=== PATIENT | female | born 2000 | race Caucasian/White ===

== ENCOUNTER 2024-01-02 16:21 | Outpatient (CLI) | payer BC, MEDICAID, SELFPAY ==
[2024-01-02 17:25] LABS: HCG Quant, Pregnancy 86 mIU/mL (1-3)
== END 2024-01-02 16:22 | disposition home or self-care (01) ==
LOC: LBO 16:23
PROVIDERS: Visit Provider Advanced Practice Midwife
DX: O20.9 Hemorrhage in early pregnancy, unspecified (principal); N92.6 Irregular menstruation, unspecified
CPT/HCPCS: 36415; 84702

== ENCOUNTER 2024-04-04 16:45 | Outpatient (CLI) | payer BC, SELFPAY ==
[2024-04-04 17:08] LABS: HCG Quant, Pregnancy 44 mIU/mL (1-3)
== END 2024-04-04 16:46 | disposition home or self-care (01) ==
LOC: LBO 16:47
PROVIDERS: Obstetrics & Gynecology; PCP Nurse Practitioner Family; Referring Provider Obstetrics & Gynecology Gynecology; Visit Provider Obstetrics & Gynecology Gynecology
DX: O26.851 Spotting complicating pregnancy, first trimester (principal); Z3A.01 Less than 8 weeks gestation of pregnancy
CPT/HCPCS: 36415; 84702

== ENCOUNTER 2024-05-22 04:44 | Outpatient (CLI) | payer BC, MEDICAID, SELFPAY ==
[2024-05-22 11:42] LABS: Abs Immature Grans 0.04 10^3/uL (0.0-0.06); Absolute Eosinophil Count 0.08 10^3/uL (0.0-0.7); Absolute Lymphocyte Count 1.99 10^3/uL (1.2-3.4); Absolute Monocyte Count 0.77 10^3/uL (0.1-0.8); Basophils % 0.3 %; Eosinophils % 0.7 %; HCT 37.7 % (36.0-46.0); Immature Grans % 0.3 %; Lymphocytes % 17.3 %; MCH 31.2 pg (27.0-33.0); MCHC 34.5 % (32.0-36.0); MCV 90 fL (80-95); MPV 10.1 fL (8.0-11.0); Monocytes % 6.7 %; Neutrophils % 74.7 %; Platelet Count 251 10^3/uL (130-400); RBC 4.17 10^6/uL (3.93-5.22); RDW 11.7 % (11.7-14.6); RDW-SD 38.4 fL; WBC 11.52 10^3/uL (4.4-10.8)
[2024-05-22 11:46] LABS: Absolute Basophil Count 0.03 10^3/uL (0.0-0.2); Absolute Neutrophil Count 8.61 10^3/uL (1.2-6.7)
[2024-05-22 12:13] LABS: TSH (W/Ref FT4) 0.01 uIU/mL (0.36-3.74)
[2024-05-22 12:31] LABS: Panorama Kit Sent via Fed Ex
[2024-05-22 12:31] LABS: FREE T4 1.52 ng/dL (0.76-1.46)
[2024-05-22 19:04] LABS: Hepatitis B Surface Ag Negative (Negative)
[2024-05-22 19:44] LABS: HIV-1/2 Ag & Ab Screen Negative (Negative)
[2024-05-22 19:52] LABS: Hepatitis C Ab w Rflx HCV PCR Negative (Negative)
[2024-05-23 09:54] LABS: Rubella IgG Ab (UVM) Positive (See Note); Varicella IgG Antibody Positive (See Note)
[2024-05-24 14:18] LABS: Syphilis IgG w/Reflex Nonreactive (Nonreactive)
== END 2024-05-22 04:45 | disposition home or self-care (01) ==
LOC: LBO 04:44
PROVIDERS: Advanced Practice Midwife; PCP Nurse Practitioner Family; Visit Provider Advanced Practice Midwife
DX: Z34.91 Encounter for supervision of normal pregnancy, unspecified, first trimester (principal); Z83.49 Family history of other endocrine, nutritional and metabolic diseases
CPT/HCPCS: 36415; 86787; 86803; 86850; 86900; 86901; 87340; 87389; 84439; 84443; 85025; 86762; 86780

== ENCOUNTER 2024-05-22 11:37 | Outpatient (REF) | payer BC, MEDICAID, SELFPAY ==
[2024-05-23 11:33] LABS: Chlamydia Result Negative (Negative); GC Result Negative (Negative)
== END 2024-05-22 11:38 | disposition home or self-care (01) ==
LOC: LBN 11:37
PROVIDERS: PCP Nurse Practitioner Family; Visit Provider Advanced Practice Midwife
DX: Z34.91 Encounter for supervision of normal pregnancy, unspecified, first trimester (principal)
CPT/HCPCS: 87491; 87591; 87086

== ENCOUNTER 2024-07-17 10:25 | Outpatient (CLI) | payer BC, MEDICAID, SELFPAY ==
[2024-07-17 10:58] LABS: TSH (W/Ref FT4) 0.18 uIU/mL (0.36-3.74)
[2024-07-17 11:28] LABS: FREE T4 0.96 ng/dL (0.76-1.46)
== END 2024-07-17 10:26 | disposition home or self-care (01) ==
LOC: LBO 10:26
PROVIDERS: PCP Nurse Practitioner Family; Visit Provider Advanced Practice Midwife
DX: Z34.91 Encounter for supervision of normal pregnancy, unspecified, first trimester (principal)
CPT/HCPCS: 36415; 84439; 84443

== ENCOUNTER 2024-09-19 01:49 | Outpatient (CLI) | payer BC, MEDICAID, SELFPAY ==
[2024-09-19 09:54] LABS: HCT 33.3 % (36.0-46.0); HGB 11.1 g/dL (11.2-15.7); MCH 31.5 pg (27.0-33.0); MCHC 33.3 % (32.0-36.0); MCV 95 fL (80-95); MPV 10.4 fL (8.0-11.0); Platelet Count 208 10^3/uL (130-400); RBC 3.52 10^6/uL (3.93-5.22); RDW 13.2 % (11.7-14.6); RDW-SD 45.3 fL; WBC 12.63 10^3/uL (4.4-10.8)
[2024-09-19 10:23] LABS: Glucose,1 Hr (Glucola) 137 mg/dL (80-140)
[2024-09-19 10:34] LABS: TSH (W/Ref FT4) 0.35 uIU/mL (0.36-3.74)
[2024-09-19 11:01] LABS: FREE T4 0.92 ng/dL (0.76-1.46)
== END 2024-09-19 01:50 | disposition home or self-care (01) ==
LOC: LBO 01:49
PROVIDERS: Advanced Practice Midwife; PCP Nurse Practitioner Family; Visit Provider Advanced Practice Midwife
DX: Z34.92 Encounter for supervision of normal pregnancy, unspecified, second trimester (principal); Z83.49 Family history of other endocrine, nutritional and metabolic diseases
CPT/HCPCS: 36415; 82950; 85027; 84439; 84443

== ENCOUNTER 2024-11-18 03:26 | Outpatient (CLI) | payer BC, MEDICAID, SELFPAY ==
--- NOTE | 2024-11-18 06:30 | DI.US_ITS ---
Exam(s) US OB GIORGIO WEIGHT EXAM: US OB GIORGIO WEIGHT CLINICAL HISTORY: 3RD trimester growth US,INSULIN RESISTENCE,o26.899,E88.819. TECHNIQUE: Transabdominal obstetrical ultrasound performed. COMPARISON: US US OB 2-3 TRIMESTER from 07/17/2024 FINDINGS:: Number of fetuses: 1 position: CEPHALIC Placental location: No evidence of previa. BIOMETRIC DATA: BPD: 9.04cm, 36weeks 4days HC: 33.47cm, 38weeks 2days AC: 32.36cm, 36weeks 2days FL: 7.09cm, 36weeks 2days EFW: 2,967.35g, 6lb 8.67oz, 53.2% Composite Age: 36weeks 6days NITO: 12/10/2024 Heart Rate: 125bpm Amniotic fluid index: 16.69cm. Visually, amount of fluid is within normal limits. IMPRESSION: size and weight are within the expected range. DATA REPOSITORY:
== END 2024-11-18 03:46 ==
LOC: DI 03:27
PROVIDERS: PCP Nurse Practitioner Family; Visit Provider Obstetrics & Gynecology
DX: O26.893 Other specified pregnancy related conditions, third trimester (principal); E88.819 Insulin resistance, unspecified; Z3A.36 36 weeks gestation of pregnancy
CPT/HCPCS: 76816

== ENCOUNTER 2024-11-18 10:26 | Outpatient (REF) | payer BC, MEDICAID, SELFPAY | END 2024-11-18 10:27 | disposition home or self-care (01) | LOC: LBN 10:26 | PROVIDERS: PCP Nurse Practitioner Family; Visit Provider Obstetrics & Gynecology | DX: Z34.93 Encounter for supervision of normal pregnancy, unspecified, third trimester (principal) | CPT/HCPCS: 87081 ==

== ENCOUNTER 2024-12-11 08:35 | Inpatient (IN) | payer BC, MEDICAID, SELFPAY ==
[2024-12-11] VITALS (75 sets, daily range): BP systolic 91–137; BP diastolic 51–104; PULSE 75–174; RESP 16–17; TEMP 36.7–36.9; O2SAT 96–100; BMI 29.5
--- NOTE | 2024-12-11 09:46 | W.PM.OBHPL1 ---
Date of service: 12/11/24 Time of Service: 09:46 OB-HPI Labor/Delivery History of Present Illness Reason for Visit: Labor induction Chief Complaint: Other (Elective induction at term). NITO Calculator Estimated Delivery Date Method Current WG Current Estimate 12/12/24 LMP (Certain) 39w 6d Other Estimates 12/13/24 Ultrasound #1 39w 5d Comments: Patient presents to the center for elective labor induction. She is laila approximately every 3 to 4 minutes mild to moderate at best. She is category 1, reactive nonstress test. We discussed the risk, benefits, and alternatives of labor induction versus watchful waiting. Patient consents to labor induction. She does understand that there is a small though present increased risk for . She has had a relatively on complex with the exception of an elevated 1 hour glucose tolerance test. She declined a 3-hour test, however she did have intermittent blood glucose monitoring, and appropriate growth on most recent ultrasound at the 46th percentile. She is anticipating analgesia with an epidural. Anesthesia is aware. History of Present Expected Delivery Route/Plan - MD HENRY - Ricky Valentine (2nd baby together) BB yes to circ Specific Issues/Plan 1. Labs: negative for CF and SMA with first . Declines AFP. cfDNA low risk male 2. 5P's negative 3. FH thyroid disorder: TSH- 0.01/ FT4- 1.52 (H), repeat second trimester- TSH 0.18 FT4 normal 0.96; 3rd Trimester -TSH 0.35, FT4 0.92 4. 1-hr GTT at 28 weeks 137, Declines 3-hr GTT , home testing Narrative: Uncomplicated course to this point. Elevated 1 hour glucose tolerance test at 137. Declined 3-hour. Was doing home testing. Adequate growth. No evidence of macrosomia. Risks of hemorrhage, dystocia, and all discussed. Informed Consent Informed Consent: Induction of Labor Review of Systems All systems reviewed & are unremarkable except as noted in HPI and below Eyes Eyes: Reports as per HPI and Reports system reviewed and no additional complaints, except as documented ENT Ears, Nose, Mouth, and Throat: Reports system reviewed and no additional complaints, except as documented and Reports as per HPI Cardiovascular Cardiovascular: Reports system reviewed and no additional complaints, except as documented, Denies chest pain and Denies irregular heart rhythm Respiratory Respiratory: Reports system reviewed and no additional complaints, except as documented, Denies chest congestion and Denies cough Gastrointestinal Gastrointestinal: Reports system reviewed and no additional complaints, except as documented Genitourinary Genitourinary: Reports system reviewed and no additional complaints, except as documented Neurologic Neurologic: Reports system reviewed and no additional complaints, except as documented PFSH All Active Problems (Acute) Bleeding in early (Acute) Medical History Family history of thyroid disease Asthma Family History Mother Thyroid disease Social History Smoking risk assessment performed?: No History History 3 Para 1 Hx # Term Pregnancies 1 Multiple births 0 Hx # Pregnancies 0 Ectopic pregnancies 0 AB induced 0 Hx Number of Living Children 1 AB spontaneous 1 Past Pregnancies Del. Date GA/Weeks # Preg Succ Route Wgt Sex Labor Lgth Anesthesia Location Prov Complic 11/08/23 40 No Yes vaginal 8 lb 9 oz Female 5 regional [place] 01/16/24 6 No No Delivery Date: 11/08/23 Last Updated by: Bianca Aguilar CNM Donna Delivery Date: 01/16/24 Last Updated by: Peg Fuller MD spotting throughout 6w of . Meds Allergies and Home Medications Allergies Allergy/AdvReac Type Severity Reaction Status Date / Time No Known Allergies Allergy Verified 12/03/24 11:22 Home Medications ?Medication ?Instructions ?Recorded ?Confirmed ?Type vits no.126-ferrous fum 1 tab PO DAILY 01/02/24 12/03/24 History 28 mg iron-folic acid 800 mcg tablet (Classic ) Exam Physical Exam Vital signs: Temp Pulse BP 98.3 F 103 H 137/63 12/11/24 09:32 12/11/24 09:25 12/11/24 09:25 Vital Signs Reviewed: Yes Constitutional Constitutional: no acute distress Detailed Labor and Delivery Exam Dilation: 2 Effacement (%): 5 station: 0 Cervix position: anterior Consistency: soft Paz Score: Cervical Points Exam 0 1 2 3 Dilation Closed 1-2cm 3-4 cm 5-6cm Effacement 0-30% 40-50% 60-70% 80% Consistency Firm Medium Soft Station -3 -2 -1,0 +1,+2 Position Posterior Mid Anterior PAZ Score(Cervical Ripeness Score): 8 Amniotic Membrane Status: Intact Contraction Frequency(min): 3-4 Contraction Duration(sec): 60 Contraction Intensity: Mild/Moderate Fetus A Heart Rate Baseline: 145 Monitor Accelerations: Present Monitor Decelerations: None Variability: Moderate (6-25 BPM) Presentation: Cephalic Categories: Category I HEENT Exam HEENT Exam: Normal Neck Exam Neck Exam: Normal Respiratory Exam Respiratory Exam: Normal Cardiovascular Exam Cardiovascular Exam: Normal Abdominal Exam Abdominal Exam: Normal Extremities Exam Extremities Exam: Normal Back/Spine/Pelvis Exam Pelvis Adequate: Yes Neurological Exam Neurological Exam: Normal Psychiatric Exam Psychiatric Exam: Normal Results Results Group Beta Strep: Negative Blood Type: A+ Rubella Status: Immune Varicella Immunity: Immune Risk Assessment Risk for Shoulder Dystocia Historical/Initial OB: NEGATIVE FOR: Pelvic Abnormality, Pre- BMI>30, Previous Shoulder Dystocia or Previous Macrosomia Increased Risk?: No Date/Initial: 12/11/2024-K today Delivery Plan @ 40 wks: Labor induction at term Risk for Pre-Eclampsia Daily Dose ASA Indicated: No Yes, if one or more: NEGATIVE FOR: Hx Pre-E/Gest HTN, Chronic HTN, Multiple Gestation, Pre-gestational DM, Renal Disease, Systemic Lupus or APA Syndrome Yes, if 2 or more: NEGATIVE FOR: Nulliparity, Age>= 35 yrs, >10yr btwn pregnancies, BMI>30, ethinicty, Mother/Sister w/ Pre-E or Previous IUGR Risk for Post- Hemorrhage Initial: NEGATIVE FOR: Multiple Gestation, Previous PPH, Known Clotting Deficiency, Grand Multiparity or Anticoagulation At Risk?: No Counseled re: Active Management: Yes Date/Initials: 12/11/2024-KJ Risks Reviewed Risks Reviewed Upon Admission: Yes
[2024-12-11] MEDS: Oxytocin/Normal Saline 30 UNIT/500 ML BAG 2 UNITS IV (10:21)
[2024-12-11] MEDS: Lactated Ringers 1,000 ML 125 ML IV (10:23)
[2024-12-11 10:26] LABS: HCT 34.7 % (36.0-46.0); HGB 11.6 g/dL (11.2-15.7); MCH 30.3 pg (27.0-33.0); MCHC 33.4 % (32.0-36.0); MCV 91 fL (80-95); MPV 10.8 fL (8.0-11.0); Platelet Count 189 10^3/uL (130-400); RBC 3.83 10^6/uL (3.93-5.22); RDW 14.4 % (11.7-14.6); RDW-SD 47.3 fL; WBC 13.13 10^3/uL (4.4-10.8)
--- NOTE | 2024-12-11 10:41 | W.ANESPRE ---
General Info Date of Service Date Performed: 12/11/24 Height: 5 ft 4 in Weight: 78.018 kg Body Mass Index (BMI): 29.5 Meds Allergies and Home Medications Allergies Allergy/AdvReac Type Severity Reaction Status Date / Time No Known Allergies Allergy Verified 12/03/24 11:22 Home Medication ?Medication ?Instructions ?Recorded vits no.126-ferrous fum 1 tab PO DAILY 01/02/24 28 mg iron-folic acid 800 mcg tablet (Classic ) Current Visit Medications: Current Medications Generic Name Dose Route Start Last Admin Trade Name Freq PRN Reason Stop Dose Admin Ringer's Solution 1,000 mls @ 125 mls/hr 12/11/24 09:45 12/11/24 10:23 IV 125 mls/hr INFUSION XAVIER Administration Oxytocin/Sodium Chloride 30 unit in 500 mls @ 1 mls/hr 12/11/24 09:45 12/11/24 10:21 Pitocin/Normal Saline IV 2 milliunits/min INFUSION XAVIER 2 mls/hr Protocol Administration 1 MILLIUNITS/MIN IV Miscellaneous Supplies 1 each 12/11/24 09:45 Iv Access IV DIRECTED XAVIER Sodium Chloride 0 ml 12/11/24 09:44 Normal Saline Flush 10 Ml Syr IVP PRN PRN Sodium Chloride 0 ml 12/11/24 20:00 Normal Saline Flush 10 Ml Syr IVP BID XAVIER Sodium Chloride 0 ml 12/11/24 09:44 Normal Saline 10 Ml Vial IJ DIRECTED PRN PFSH Active Problems Active Problems: Problem Status Onset Code Acute Z34.90 Bleeding in early Acute O20.9 Medical History Medical History Family history of thyroid disease Asthma Tobacco Smoking/Tobacco Use Status: Never Passive smoking exposure: No Alcohol Alcohol Intake: never Substance Use Substance use: Never Substance use type: does not use Prental History History 3 Para 1 Hx # Term Pregnancies 1 Multiple births 0 Hx # Pregnancies 0 Ectopic pregnancies 0 AB induced 0 Hx Number of Living Children 1 AB spontaneous 1 Past Pregnancies Del. Date GA/Weeks # Preg Succ Route Wgt Sex Labor Lgth Anesthesia Location Prov Complic 11/08/23 40 No Yes vaginal 3883.885 g Female 5 regional [place] 01/16/24 6 No No Delivery Date: 11/08/23 Last Updated by: Bianca Aguilar CNM Donna Delivery Date: 01/16/24 Last Updated by: Peg Fuller MD spotting throughout 6w of . Vital Signs and Lab Results Vital Signs Most Recent Vital Signs in EMR: Most Recent Vital Signs Temp Pulse Resp BP 36.8 C 103 H 16 137/63 12/11/24 09:32 12/11/24 09:25 12/11/24 10:26 12/11/24 09:25 Lab Results 12/11/24 10:00 Complete Blood Count: WBC, (4.4-10.8) 13.13 10^3/uL H Today, 10:00 RBC, (3.93-5.22) 3.83 10^6/uL L Today, 10:00 Hgb, (11.2-15.7) 11.6 g/dL Today, 10:00 Hct, (36.0-46.0) 34.7 % L Today, 10:00 Plt Count, (130-400) 189 10^3/uL Today, 10:00 Anesthesia Assessment and Plan Anesthesia History Personal History: No History of Anesthesia Complications Family History: No Family History of Anesthesia Complications Exercise Tolerance Exercise Tolerance: Metabolic Equivalents>4 Pertinent Negatives Pertinent Negatives: No Symptoms of GERD, No Major Cardiovascular Symptoms or Complaints and No Major Pulmonary Symptoms or Complaints Cardiac & Pulmonary Exam Cardiac Exam: Normal S1/S2 Heart Sounds Pulmonary Exam: Clear Bilateral Breath Sounds Implantable Cardiac Device Does patient have a Pacemaker or an ICD?: No Airway Exam Known Difficult Airway: No Mallampati Class: 2 Mouth Opening: Normal (> 3cm) Thyromental Distance: Greater than 3 cm Neck Range of Motion: Full ROM Neck Circumference: Normal Teeth Condition: Normal Dentition ASA Classification ASA Score: ASA 2 Emergency Case?: No NPO Status NPO Status: NPO Clears >2 hours, Solids >8 hours Status Status: Confirmed Anesthesia Plan Resuscitation Status: Full Code Anesthesia Technique: Epidural Anesthesia Airway Planned: Natural Airway Monitors Used: Standard Monitors
--- NOTE | 2024-12-11 14:59 | W.PM.OBNL1 ---
Date of service: 12/11/24 Time of Service: 14:59 Informed Consent Informed Consent: Induction of Labor Pelvic Exam Dilation: 2 Effacement (%): 50 station: 0 Contractions Monitor Mode: External Contraction Duration(sec): 60 Intensity: Mild/Moderate Fetus A Monitor: External (US) Heart Rate Baseline: 145 Variability: Moderate (6-25 BPM) Categories: Category I Assessment and Plan Assessment and plan (1) Encounter for induction of labor: Status: Acute Assessment and plan: Epidural to be placed. Will have artificial rupture membranes when appropriate. Anticipate vaginal . (2) : Status: Acute Objective Abnormal lab results 12/11/24 Range/Units 10:00 WBC 13.13 H (4.4-10.8) 10^3/uL RBC 3.83 L (3.93-5.22) 10^6/uL Hct 34.7 L (36.0-46.0) % Temp Pulse Resp BP Pulse Ox 98.2 F 75 16 134/61 97 12/11/24 13:20 12/11/24 13:21 12/11/24 13:20 12/11/24 13:21 12/11/24 10:26 Laboratory Results WBC 13.13 10^3/uL (4.4-10.8) H 12/11/24 10:00 RBC 3.83 10^6/uL (3.93-5.22) L 12/11/24 10:00 Hgb 11.6 g/dL (11.2-15.7) 12/11/24 10:00 Hct 34.7 % (36.0-46.0) L 12/11/24 10:00 MCV 91 fL (80-95) 12/11/24 10:00 MCH 30.3 pg (27.0-33.0) 12/11/24 10:00 MCHC 33.4 % (32.0-36.0) 12/11/24 10:00 RDW 14.4 % (11.7-14.6) 12/11/24 10:00 Plt Count 189 10^3/uL (130-400) 12/11/24 10:00 MPV 10.8 fL (8.0-11.0) 12/11/24 10:00 ABO/Rh A Positive 12/11/24 10:00 Antibody Screen NEGATIVE 12/11/24 10:00 Subjective Interval history since last seen: Patient seen, Pitocin at 5, cervix unchanged from previous examination. No laila every 3 minutes. Would like to perform artificial rupture of membranes. Patient will have epidural prior to. If unable to rupture, Chinchilla balloon will be placed. Continue labor induction Results Hemoglobin/Hematocrit: Hgb 11.6 g/dL (11.2-15.7) 12/11/24 10:00 Hct 34.7 % (36.0-46.0) L 12/11/24 10:00 Abnormal Lab Findings: Abnormal Labs 12/11/24 10:00 WBC 13.13 H RBC 3.83 L Hct 34.7 L
[2024-12-11] MEDS: FentaNYL/ROPIvacaine 2 mcg/ml and 0.1% 200 ML CADD Cassette EP (15:56)
--- NOTE | 2024-12-11 16:08 | W.ANESNEU ---
Epidural/Spinal Catheter Date Performed: 12/11/24 Procedure Start: 15:25 Procedure Stop: 15:50 Requesting Provider: Niya Perera Procedure Location: Obstetrics Reason Performed: Labor Epidural Standard Monitors Applied: Blood Pressure, SpO2 and See EMR for corresponding vital signs Patient Position: Sitting Sedation Given (Indicate Dose Given): No Sedation given Patient Mental Status: Awake Sterility: Hand Hygiene, Surgical Cap, Surgical Mask, Sterile Gloves, Sterile Drape/Sheet and Chlorhexidine Procedure Location: L2-L3 Interspace Epidural Needle: Tuohy 18 Gauge Needle Length: 3.5 Inch Needle Approach: Midline Epidural Procedure: Skin Prepped, Sterile Drape Placed, 1% Lidocaine to skin and subcutaneous tissue with 25G needle, Tuohy Needle placed, JOSE to Saline Used, Epidural Catheter Placed, Negative Heme, Negative CSF Flow and Tuohy Needle Removed Catheter Placed?: Catheter Placed Test Dose (Indicate Dose Given): 3ml 1.5% Lidocaine with 1:200K Epinephrine Given Loss of Resistance Depth (cm): 6 Catheter depth at skin (cm): 13 Dressing: Sorbaview Dressing Placed Epidural Provider Bolus (Indicate Dose Given): Total bolus dose given in 3-5 ml divided doses and Total Ropivacaine 0.1% with Fentanyl 2mcg/ml Given from pump. (ml) Dose:: 3mL Additives (Indicate Dose Given ): None Infusion Medication: Medication Infusion Began Medication Infusion: Ropivacaine 0.1% with Fentanyl 2mcg/ml Maintenance Infusion Rate (ml/hour): 10 PCEA Bolus Dose (ml): 5 Block Level: N/A Paresthesia: None Ultrasound: Not Used Number of Attempts (See previous attempts in note section): 1 Procedure Tolerated: No Complications Procedure Outcome: Successful Performed By: Stephanie Johnson
--- NOTE | 2024-12-11 16:25 | W.PM.OBNL1 ---
Date of service: 12/11/24 Time of Service: 16:25 Informed Consent Informed Consent: Induction of Labor Pelvic Exam Dilation: 3 Effacement (%): 60 station: 0 Cervix Position: anterior Consistency: soft Contractions Contraction Frequency(min): 3 Fetus A Heart Rate Baseline: 145 Presentation: Cephalic Variability: Moderate (6-25 BPM) Categories: Category I FHR Rhythm: Regular Objective Abnormal lab results 12/11/24 Range/Units 10:00 WBC 13.13 H (4.4-10.8) 10^3/uL RBC 3.83 L (3.93-5.22) 10^6/uL Hct 34.7 L (36.0-46.0) % Temp Pulse Resp BP Pulse Ox 98.2 F 100 H 16 115/62 97 12/11/24 16:08 12/11/24 16:24 12/11/24 13:20 12/11/24 16:10 12/11/24 16:24 Laboratory Results WBC 13.13 10^3/uL (4.4-10.8) H 12/11/24 10:00 RBC 3.83 10^6/uL (3.93-5.22) L 12/11/24 10:00 Hgb 11.6 g/dL (11.2-15.7) 12/11/24 10:00 Hct 34.7 % (36.0-46.0) L 12/11/24 10:00 MCV 91 fL (80-95) 12/11/24 10:00 MCH 30.3 pg (27.0-33.0) 12/11/24 10:00 MCHC 33.4 % (32.0-36.0) 12/11/24 10:00 RDW 14.4 % (11.7-14.6) 12/11/24 10:00 Plt Count 189 10^3/uL (130-400) 12/11/24 10:00 MPV 10.8 fL (8.0-11.0) 12/11/24 10:00 ABO/Rh A Positive 12/11/24 10:00 Antibody Screen NEGATIVE 12/11/24 10:00 Subjective Interval history since last seen: Patient seen. Comfortable with epidural. Consents to artificial rupture of membranes. Cervical exam is 2 to 3 cm 60%, artificial rupture membranes for clear fluid. heart tones remain 140 moderate variability, category 1. Contractions every 3 minutes. Pitocin at 5. Anticipate vaginal . Results Hemoglobin/Hematocrit: Hgb 11.6 g/dL (11.2-15.7) 12/11/24 10:00 Hct 34.7 % (36.0-46.0) L 12/11/24 10:00 Abnormal Lab Findings: Abnormal Labs 12/11/24 10:00 WBC 13.13 H RBC 3.83 L Hct 34.7 L
--- NOTE | 2024-12-11 18:20 | W.OBNST ---
Date of service: 12/11/24 Time of Service: 18:20 NST Evaluation Reason for NST Reasons for Nonstress Test: OTHER, SEE COMMENT Reason for NST Other: IOL Gestational Age Gestational Age in Weeks and Days: 39 Weeks and 6Days Test and Monitor Explained Test/Monitor Explained: Test Explained, Monitor Explained and Patient Verbalized Understanding Vital Signs Blood Pressure: 137/63 Pulse: 103 Temperature: 98.2 F Weight: 172 lb NST Information Date on Monitor: 12/11/24 NST Interventions: PO Hydration Contraction Frequency: 1-4 min NST Evaluation Patient States Movement: Present FHR Baseline: 130 Variability: Moderate 6-25 bpm Accelerations: 15x15 Decelerations: None NST Results: Reactive Note Ultrasound Done: N/A. NST Note Note: Category 1, reactive, irregular contractions. NST Reviewed and Verified by: Niya Perera
--- NOTE | 2024-12-11 20:04 | PLAC_PTH ---
PATIENT: Ruthie Maynard LOC: OBS U#:[id number] AGE/SX: 24/F ROOM: OBS.301 RE12/11/[address]: Niya Perera DO : 2000 BED: A DIS: 12/13/2024 SPEC #: [id number] RECD: 12/12/24 11:09 STATUS: LEMUEL REQ #: [id number] LYN: 12/11/24 20:[address]: Niya Perera DEPT: Surgical Specimen RECD BY: Stacy Coon ENTERED: 12/12/24 11:10 SP TYPE: PLAC OTHR DR: Charito Mcgregor Tissues: 1 - PLACENTA (3RD TRIMESTER) Procedures: GROSS AND MICRO LEVEL 5 Comments: [id number]
--- NOTE | 2024-12-11 20:29 | W.OBDELIVERY ---
Date of service: 12/11/24 Time of Service: 20:29 OB Labor/ Delivery Information Baby A Delivery Delivery Method: Spontaneaous Presentation: Cephalic Vertex Position: Right Occipital Anterior Cord Description-Baby A: 3 Vessels and Nuchal Cord (X 1 ) Amniotic Fluid: Clear Quantitative Blood Loss: 150 Delivery Outcome: Liveborn Transferred: Remains with Mother Note: Patient was at term for labor induction. She had Pitocin induction. She received an epidural for pain control. She had artificial rupture of membranes at less than 12 hours. She progressed to the point of being completely dilated. With good maternal effort, she pushed vertex over an intact perineum. There was a loose nuchal cord x 1 which was delivered through. Baby was delivered to the mom's chest. There was delayed cord clamping. Three-vessel cord was noted, clamped x 2 and cut. Mom and baby are stable postdelivery. Placenta delivered spontaneously and was noted to be intact. As of note, it will be sent for examination as there was a succenturiate lobe. On inspection of the cervix, vagina, and perineum there was noted to be second-degree perineal laceration which was repaired in the usual fashion after infiltration of lidocaine, 1%. Hemostasis was achieved. Appropriate cosmetic outcome. Mom and baby are stable. Qualitative blood loss was 150 cc. Uterus is firm, 2 cm below the umbilicus. Patient received IV Pitocin for uterine tonicity. Providers Doctor: Niya Perera Nurse: Madina Leonardo Nurse: Noelle Christopher Labor/Delivery Information Number of Babies in Womb: 1 Steroids Given: None Reason Steroids Not Administered: N/A Group Beta Strep: Negative Antibiotics Administered: No Rubella Status: Immune Blood Type: A+ Varicella Immunity: Immune Maternal Complications: None Shoulder Dystocia: No Stages of Labor Onset of Labor Date: 12/11/24 Onset of Labor Time: 07:00 Complete Dilatation Date: 12/11/24 ROM Baby A: 12/11/24 Infant Delivery Date-Baby A: 12/11/24 Infant Delivery Time-Baby A: 19:58 Placenta Delivery Date-Baby A: 12/11/24 Placenta Delivery Time-Baby A: 20:04 Labor-Stage 3 Duration: 6 minutes Total Length of Labor-Baby A: 12 hours and 58 minutes Placenta Cultured: No Placenta Status: Delivered Baby A Gender: Male Gestational Age in Weeks/Days: 39 Weeks and 6 Days Score-1 Minute Interval(Baby A) Heart Rate-1 minute: 100 BPM or Greater Respiratory Effort- 1 minute: Spontaneous/Strong Cry Muscle Tone-1 minute: Active Movement Reflex Response-1 minute: Prompt Response Color-1 minute: Bluish Hands or Feet Total Score-1 minute: 9 Score-5 Minute Interval(Baby A) Heart Rate- 5 minute: 100 BPM or Greater Respiratory Effort-5 minute: Spontaneous/Strong Cry Muscle Tone-5 minute: Active Movement Reflex Response-5 minute: Prompt Response Color-5 minute: Bluish Hands or Feet Total Score- 5 minute: 9
[2024-12-11] MEDS: Dibucaine 1% 28 GM TUBE TP (22:38)
[2024-12-11] MEDS: Ibuprofen 600 MG TAB PO (22:39)
[2024-12-11] MEDS: Acetaminophen 325 MG TAB 650 MG PO (22:39)
[2024-12-11] MEDS: Hamamelis Leaf/Glycerin 100 EACH BOX PR (22:40)
[2024-12-12 05:04] LABS: HCT 33.0 % (36.0-46.0); HGB 11.3 g/dL (11.2-15.7); MCH 31.7 pg (27.0-33.0); MCHC 34.2 % (32.0-36.0); MCV 93 fL (80-95); MPV 11.1 fL (8.0-11.0); Platelet Count 210 10^3/uL (130-400); RBC 3.56 10^6/uL (3.93-5.22); RDW 14.1 % (11.7-14.6); RDW-SD 48.2 fL; WBC 18.64 10^3/uL (4.4-10.8)
[2024-12-12] MEDS: Ibuprofen 600 MG TAB PO ×3 (06:58→20:39)
[2024-12-12] MEDS: Acetaminophen 325 MG TAB 650 MG PO ×3 (06:58→20:39)
[2024-12-12 07:28] VITALS: BP 117/59; PULSE 79
[2024-12-12 07:36] VITALS: BP 117/59; PULSE 79; RESP 16; TEMP 36.8
--- NOTE | 2024-12-12 09:41 | OBPPV_ITS ---
Date of service: 12/12/24 Time of Service: 09:41 Assessment and Plan Assessment and plan (1) Normal spontaneous vaginal delivery: Status: Acute Assessment and plan: day #1 status post vaginal after labor induction. Doing well. No issues or concerns. Breast-feeding without difficulty. Hemoglobin is stable. Anticipate discharge tomorrow Subjective Subjective Interval history: Patient seen and examined day #1 status post vaginal . Overall she is doing well. She is breast-feeding without difficulty. Her pain is well- controlled. Her lochia is physiologic. She has requested circumcision for her . I would anticipate discharge tomorrow if stable. All questions answered. [facility] feeding status: Exclusively breast feeding Exam Physical Exam Vital signs: Temp Pulse Resp BP Pulse Ox 98.2 F 79 16 117/59 L 97 12/12/24 07:36 12/12/24 07:36 12/12/24 07:36 12/12/24 07:36 12/11/24 18:18 Vital Signs Reviewed: Yes Constitutional Constitutional: no acute distress HEENT Exam HEENT Exam: Normal Neck Exam Neck Exam: Normal Respiratory Exam Respiratory Exam: Normal Cardiovascular Exam Cardiovascular Exam: Normal Abdominal Exam Comments: Soft, nontender Fundal Exam Fundus: Below Umbilicus and Firm Extremities Exam Extremity Exam: Normal; negative Calf Tenderness Results Hemoglobin/Hematocrit: Hgb 11.3 g/dL (11.2-15.7) 12/12/24 04:56 Hct 33.0 % (36.0-46.0) L 12/12/24 04:56 Abnormal Lab Findings: Abnormal Labs 12/11/24 12/12/24 10:00 04:56 WBC 13.13 H 18.64 H RBC 3.83 L 3.56 L Hct 34.7 L 33.0 L MPV 11.1 H
[2024-12-12] MEDS: Docusate Sodium 100 MG CAP PO (11:58)
[2024-12-12 21:01] VITALS: BP 114/74; PULSE 84; RESP 16; TEMP 36
[2024-12-13] MEDS: Acetaminophen 325 MG TAB 650 MG PO (04:04)
[2024-12-13] MEDS: Ibuprofen 600 MG TAB PO (04:04)
[2024-12-13 08:45] VITALS: BP 115/75; PULSE 84; RESP 16; TEMP 36.7; O2SAT 98
--- NOTE | 2024-12-13 10:45 | W.PM.OBDISCH ---
Date of service: 12/13/24 Time of Service: 10:45 DS: Diagnosis Discharge Diagnosis (1) Normal spontaneous vaginal delivery: Status: Acute Asessment and Plan: PPD#2 s/p NVD, doing well and ready for d/c. Reviewed reasons to call including increasing bleeding or pain not related to increased activity, fever, concerns for depression or DVT, breast feeding concerns. Discharge Plan Disposition Patient Disposition: Home Condition: Stable Discharge Details Reason For Visit: Labor induction Admit Date/Time: 12/11/24 08:35 Admit Provider: Niya Perera Attending Provider: Niya Perera [facility] Course: Pt was admitted for induction of labor at term and underwent an uncomplicated VD. She had a routine pp course and was ready for d/c ppd#2 Home Meds and New Rx's Prescriptions: No Action Classic 28 mg iron- 800 mcg tablet 1 tab PO DAILY Discharge Instructions Stand Alone Forms: BC Instructions, BC Post Vaginal Deliver Activity:: nothing in the vagina Equipment/Supplies:: No Equipment Needed Diet:: As Tolerated Discharge Orders Discharge Orders: Discharge Order (Routine); Ordered 12/13/24 Ordered By: Grisel Myles OB:DS Summary Summary Vaginal Delivery Method: Spontaneaous Episiotomy Description: None Laceration Description: Perineal Laceration Extension: Second Degree Contraception Discussed Contraception Discussed: Yes Contraceptive Plan: Undecided, Gender-Baby A: Male weight: 8 lb 9.392 oz Status at Discharge Functional status at discharge: independent ambulation Overall status at discharge: patient is back to baseline Mental Status: mental status grossly normal Speech and Movement: speech and movement normal Mood: congruent mood Affect: normal affect Exam Physical Exam Vital signs: Temp Pulse Resp BP Pulse Ox 96.8 F L 84 16 114/74 97 12/12/24 21:01 12/12/24 21:01 12/12/24 21:12/12/24 21:12/11/24 18:18 Vital Signs Reviewed: Yes Constitutional Constitutional: no acute distress and cooperative Detailed HEENT Exam Head: Present normocephalic and atraumatic Respiratory Exam Respiratory Exam: Normal Abdominal Exam Abdomen: Tender (mildly) Fundal Exam Fundus: Below Umbilicus and Firm Extremities Exam Extremity Exam: negative Calf Tenderness or Edema Detailed Neurological Exam Neurological: Present alert, oriented X3 and CN II-XII intact PFSH All Active Problems (Updated 12/12/24 @ 09:42 by Niya Perera DO) Normal spontaneous vaginal delivery (Acute) 12/11/2024. Labor induction. Male infant Maxwell QBL 150 (Acute) Medical History Family history of thyroid disease Asthma Family History Mother Thyroid disease Social History Smoking/Tobacco Use Status: Never Smoking risk assessment performed?: Yes Alcohol Intake: never Drug use: Never Substance use type: does not use Housing: house Do you feel safe at home: Yes Do you feel safe in your relationship?: Yes History History 3 Para 2 Hx # Term Pregnancies 2 Multiple births 0 Hx # Pregnancies 0 Ectopic pregnancies 0 AB induced 0 Hx Number of Living Children 2 AB spontaneous 1 Past Pregnancies Del. Date GA/Weeks # Preg Succ Route Wgt Sex Labor Lgth Anesthesia Location Prov Complic 11/08/23 40 No Yes vaginal 8 lb 9 oz Female 5 regional [place] 01/16/24 6 No No 12/11/24 39 Yes vaginal Female 12 hour and 58 minutes Yanna Perera Delivery Date: 11/08/23 Last Updated by: DAYDAY Glez Delivery Date: 01/16/24 Last Updated by: Peg Fuller MD spotting throughout 6w of . DS: Data Vitals/I&O Vitals and I&O: Vital Signs Temperature 96.8 F L 12/12/24 21:01 Temperature 98.2 F 12/11/24 18:21 Temperature Source Tympanic 12/12/24 21:01 Pulse 84 12/12/24 21:01 Pulse 103 12/11/24 18:21 Pulse Rhythm Regular 12/12/24 21:03 Respiratory Rate 16 12/12/24 21:01 Blood Pressure 114/74 12/12/24 21:01 Blood Pressure 137/63 12/11/24 18:21 Blood Pressure Mean 87 12/12/24 21:01 Pulse Oximetry 97 12/11/24 18:18 Oxygen Delivery Method Room Air 12/11/24 10:26 Oxygen Flow Rate 0 12/11/24 10:26 Pain Level 3 12/12/24 06:58 Intake & Output 12/12/24 12/12/24 12/13/24 11:59 23:59 11:59 Output Total 450 / 450 Balance -450 / -450 Output: Urine 450 / 450 Other: Comment pt has been voiding independently with no complications.
== END 2024-12-13 11:05 | disposition home or self-care (01) | DRG 807 ==
PROVIDERS: Admitting Provider Obstetrics & Gynecology; PCP Nurse Practitioner Family; Visit Provider Obstetrics & Gynecology
DX: O43.193 Other malformation of placenta, third trimester (principal); Z37.0 Single live birth; Z3A.39 39 weeks gestation of pregnancy; O69.81X0 Labor and delivery complicated by cord around neck, without compression, not applicable or unspecified; O70.1 Second degree perineal laceration during delivery
CPT/HCPCS: 36415; 85027; 86850; 86900; 86901; 88307